=== PATIENT | male | born 1940 | race Caucasian/White ===

== ENCOUNTER → 2021-06-26 03:00 | Outpatient (CLI) | payer MEDICARE, SELFPAY ==
[2021-06-27 01:26] LABS: SARS-CoV-2 RNA PCR Negative
== END ==
PROVIDERS: Visit Provider Internal Medicine Pulmonary Disease
DX: Z01.812 Encounter for preprocedural laboratory examination (principal); Z20.822 Contact with and (suspected) exposure to COVID-19
CPT/HCPCS: C9803; U0003; U0005

== ENCOUNTER 2021-06-29 07:43 | Outpatient (CLI) | payer MEDICARE, SELFPAY ==
[2021-06-21 09:41] VITALS: BMI 24.4
[2021-06-29] VITALS (10 sets, daily range): BP systolic 110–131; BP diastolic 49–60; PULSE 51–62; RESP 16–20; O2SAT 96–99
--- NOTE | ~2021-06-29 | US_ITS ---
EXAMINATION: US biopsy liver DATE: 06/29/2021 09:44 INDICATION: Hepatomegaly with liver masses TECHNIQUE: The procedure including the risks and benefits was discussed with the patient. Risks discu ssed included bleeding and infection. The patient understood the risks and agreed to proceed. The sk in overlying the liver was prepped and draped in usual sterile fashion. Anesthetic was administered with 1% lidocaine subcutaneously. An 18 gauge core biopsy needle was advanced under continuous ultra sound observation to the lesion of interest. 3 core biopsy specimens were obtained. The needle was removed and the entry site was cleaned and dressed. Post procedure ultrasound demonstrated no hemorr flako. FINDINGS: Ultrasound images demonstrate multiple hypoechoic masses scattered throughout the liver. Chandler bsequent images demonstrate biopsy needle advanced through a 2.1 cm mass in the right hepatic lobe. IMPRESSION: 1. Successful Ultrasound-guided biopsy of a 2.1 cm right hepatic mass. Reviewed, dictated and finalized at location A.
[2021-06-29 08:49] LABS: Basophils Absolute Auto 0.1 K/mm3 (0.0-0.1); Basophils Percent Auto 0.7 % (0.2-1.2); Eosinophils Absolute Auto 0.2 K/mm3 (0-0.3); Eosinophils Percent Auto 2.3 % (0-4.4); Hematocrit 40.3 % (42.0-52.0); Hemoglobin 13.3 g/dL (14.0-18.0); Immature Granulocyte Absolute 0.02 K/mm3 (0.00-0.031); Immature Granulocyte Percent A 0.2 % (0-0.5); Lymphocytes Absolute Auto 1.27 K/mm3 (0.9-3.2); Lymphocytes Percent Auto 14.3 % (18.3-44.2); Mean Corpuscular Hemoglobin 31.7 pg (26-34); Mean Platelet Volume 10.1 fl (7.4-10.4); Monocytes Absolute Auto 0.8 K/mm3 (0.1-0.6); Monocytes Percent Auto 9.2 % (2.6-8.5); Neutrophils Absolute Auto 6.5 K/mm3 (1.3-6.7); Neutrophils Percent Auto 73.3 % (45.5-73.1); Platelet Count Result 248 k/mm3 (150-375); Red Cell Distribution Width 13.8 % (11.5-14.5); White Blood Count 8.9 K/mm3 (4.5-10.0)
[2021-06-29 09:01] LABS: INR 0.9
--- NOTE | 2021-06-29 14:13 | SUR.PHASEII ---
1335 - dr. paz in room talking with pt. okayed to discharge pt home
== END 2021-06-29 07:44 | disposition home or self-care (01) ==
PROVIDERS: Radiology Diagnostic Radiology; PCP Internal Medicine; Visit Provider Internal Medicine Pulmonary Disease
DX: R16.0 Hepatomegaly, not elsewhere classified (principal); D3A.098 Benign carcinoid tumors of other sites
CPT/HCPCS: 36415; 47000; 76942; 85025; 85610; 88307; 88342

== ENCOUNTER 2021-07-12 15:57 | Outpatient (CLI) | payer MEDICARE, SELFPAY ==
[2021-07-12 16:12] LABS: Basophils Absolute Auto 0.1 K/mm3 (0.0-0.1); Basophils Percent Auto 0.8 % (0.2-1.2); Eosinophils Absolute Auto 0.3 K/mm3 (0-0.3); Eosinophils Percent Auto 2.9 % (0-4.4); Hematocrit 41.3 % (42.0-52.0); Hemoglobin 13.6 g/dL (14.0-18.0); Immature Granulocyte Absolute 0.02 K/mm3 (0.00-0.031); Immature Granulocyte Percent A 0.2 % (0-0.5); Lymphocytes Percent Auto 16.5 % (18.3-44.2); Mean Corpuscular HGB Conc 32.9 g/dl (32-36); Mean Corpuscular Hemoglobin 30.7 pg (26-34); Mean Corpuscular Volume 93.2 fl (80-100); Mean Platelet Volume 9.8 fl (7.4-10.4); Monocytes Absolute Auto 0.9 K/mm3 (0.1-0.6); Monocytes Percent Auto 9.2 % (2.6-8.5); Neutrophils Absolute Auto 6.8 K/mm3 (1.3-6.7); Neutrophils Percent Auto 70.4 % (45.5-73.1); Platelet Count Result 310 k/mm3 (150-375); Red Blood Count 4.43 M/mm3 (4.6-6.20); Red Cell Distribution Width 13.9 % (11.5-14.5); White Blood Count 9.7 K/mm3 (4.5-10.0)
[2021-07-12 16:37] LABS: Alanine Aminotransferase 18 U/L (4-50); Albumin Level 4.5 g/dL (3.5-5.1); Alkaline Phosphatase 87 U/L (38-126); Anion Gap 4 mmol/L (8-16); Aspartate Amino Transferase 33 U/L (17-59); Bilirubin,Total 0.5 mg/dL (0.2-1.3); Blood Urea Nitrogen 20 mg/dL (9-20); Calcium 9.8 mg/dL (8.4-10.2); Carbon Dioxide 35 mmol/L (22-30); Chloride 96 mmol/L (98-107); Estimated Glomerular Filt Rate > 60; Glucose 101 mg/dL (65-110); Potassium 4.4 mmol/L (3.4-5.0); Sodium 135 mmol/L (137-145)
== END 2021-07-12 15:58 | disposition home or self-care (01) ==
LOC: ANHLAB 16:01
PROVIDERS: PCP Internal Medicine; Visit Provider Internal Medicine Hematology & Oncology
DX: C34.90 Malignant neoplasm of unspecified part of unspecified bronchus or lung (principal)
CPT/HCPCS: 36415; 80053; 85025

== ENCOUNTER 2021-07-17 08:29 | Outpatient (CLI) | payer MEDICARE, SELFPAY ==
--- NOTE | ~2021-07-17 | PE_ITS ---
EXAMINATION: PET skull to mid thigh DATE: 07/17/2021 10:30 INDICATION: Small cell lung cancer TECHNIQUE: Blood glucose level was 104 mg/dL. 10.311 mCi of 18-fluorodeoxyglucose (18-FDG) was admini stered i.v. Low dose computed tomography (CT) images were acquired from the base of the brain to the proximal thighs for attenuation correction and anatomic localization. Positron emission tomography (P ET) images were acquired in the same distribution beginning 53 minutes after injection. Images includ ing fused PET/CT images were reconstructed in axial, coronal, and sagittal planes. Automated exposure control technique was employed. The dose-length product was 409.97mGy-cm. COMPARISON: None FINDINGS: Head/neck: There is symmetric increased activity in the oral cavity, palatine tonsils, parotid glands, submandi bular glands, laryngeal muscles and ocular muscles without CT correlate, likely physiologic. 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 No pathologically enlarged cervical lymphadenopathy or other suspicious foci of increased FDG uptake in the visualized head or neck. Chest: 9.6 x 6.6 cm peripherally FDG avid mass in the right lower lobe with maximal SUV of 15.9. Central reg ions without increased FDG uptake likely related to necrosis. 1.7 cm FDG avid nodule in the anterior segment of the left upper lobe with maximal SUV of 8.4. Irregular thick reticular opacities in the ba silar right lower lobe which could represent either pulmonary edema or less likely postobstructive pn eumonia or lymphangitic carcinomatosis given the absence of appreciable associated FDG uptake. No ple ural effusion. Heart size is normal. No pericardial effusion. Diverticulum of Kommerell along the inf erior margin of the otherwise normal caliber aortic arch. 1.8 x 1.3 cm inferior right paratracheal ly mph node with mild increased FDG uptake with maximal SUV of 2.3. Abdomen/pelvis/proximal thighs: Physiologic renal accumulation and excretion of FDG activity in the kidneys, bladder and along portio ns of ureters. There are 7 markedly FDG avid subtly hypodense hepatic masses. Is a relatively poorly defined on the noncontrast CT images, the largest measuring approximately 3-3.5 cm with maximal SUVs of 9.3. The gallbladder, pancreas, spleen and right adrenal gland are normal. 2.4 x 1.7 cm left adren al nodule with low attenuation and no evident FDG uptake consistent with an adenoma. Moderate uptake scattered throughout the bowels without radiologic correlate, also likely physiologic. Bilateral hydr oceles. No other abnormal foci of increased FDG uptake or pathologically enlarged lymphadenopathy in the abdomen, pelvis or proximal thighs. Musculoskeletal: Severe cervical spondylosis with mild kyphosis. Additional severe spondylosis at the lumbosacral junc tion with bilateral L5 pars interarticularis defects and 5 mm anterolisthesis with respect to S1. No suspicious lytic, blastic or FDG avid bone lesions. There is lymphatic uptake in the left upper extre mity beginning at the antecubital fossa likely relate to small amount of extravasation at the site of injection. IMPRESSION: 1. 9.6 x 6.6 cm markedly FDG avid right lower lobe mass likely representing the primary reported smal l cell lung cancer. 2. 1.7 cm FDG avid left upper lobe nodule and multiple FDG avid hepatic masses consistent with metast atic disease. 3. A couple mildly FDG avid and mildly enlarged mediastinal lymph nodes which could be either metasta tic or reactive. 4. Predominantly interstitial opacities without appreciable FDG uptake at the basilar right lower lob e most likely pulmonary edema with differential including less likely pneumonia or lymphangitic carci nomatosis. 5. Reviewed, dictated and finalized at location A. Electronic
[2021-07-17 09:03] LABS: Glucose Point of Care 104 mg/dl (65-105)
== END 2021-07-17 08:30 | disposition home or self-care (01) ==
LOC: ANHIMG 08:36
PROVIDERS: PCP Internal Medicine; Visit Provider Internal Medicine Hematology & Oncology
DX: C34.90 Malignant neoplasm of unspecified part of unspecified bronchus or lung (principal); C7A.090 Malignant carcinoid tumor of the bronchus and lung
CPT/HCPCS: 78815; A9552

== ENCOUNTER 2021-07-20 09:48 | Outpatient (CLI) | payer MEDICARE, SELFPAY ==
--- NOTE | ~2021-07-20 | MR_ITS ---
EXAMINATION: MR brain/brain stem wo/w con DATE: 07/20/2021 11:06 INDICATION: Small cell lung cancer. TECHNIQUE: Magnetic resonance imaging (MRI) of the brain and brainstem was performed without and with 14 mL MultiHance intravenous contrast. Sequences included sagittal and axial T1-weighted FSE, axial diffusion-weighted FS EPI, axial T2*-weighted GRE, axial T2-weighted FLAIR Propeller, and axial T2-we ighted Propeller. Postcontrast sequences included axial, sagittal, and coronal T1-weighted FSE. Appar ent diffusion coefficient (ADC) maps were created. COMPARISON: None. FINDINGS: There are scattered areas of nonspecific increased T2-weighted signal intensity in the cere bral white matter, which is within normal limits for the patient's age. 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 There is a 9 mm enhancing lesion in left cerebellum. There is a 5 mm enhanci ng lesion in posterior left temporal lobe. The ventricles are normal in size. There is mild mucosal t hickening in the ethmoid sinuses. There are likely changes of ocular lens replacement surgeries. Ther e is a small left mastoid effusion. IMPRESSION: 1. Small enhancing lesions in left cerebellum and left temporal lobe, consistent with metastatic dise ase. 2. 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 Reviewed, dictated and finalized at location A. IMPRESSION: 1. Small enhancing lesions in left cerebellum and left temporal lobe, consisten t with metastatic disease. 2. 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
== END 2021-07-20 09:49 | disposition home or self-care (01) ==
LOC: ANHIMG 09:54
PROVIDERS: PCP Internal Medicine; Visit Provider Internal Medicine Hematology & Oncology
DX: C34.90 Malignant neoplasm of unspecified part of unspecified bronchus or lung (principal); R93.0 Abnormal findings on diagnostic imaging of skull and head, not elsewhere classified
CPT/HCPCS: 70553; A9577